=== PATIENT | male | born 1970 | race Caucasian/White ===

== ENCOUNTER 2017-06-02 09:50 | Inpatient (IN) | payer BC, OTHER ==
[2017-06-02] MEDS ORDERED: LIDOCAINE 1% 2 ML INJ ID PRN (13:20)
[2017-06-02] MEDS ORDERED: LR 1,000 ML IV ONE (13:20)
[2017-06-02] MEDS ORDERED: MIDAZOLAM 2 MG/2 ML VIAL IVP ONE (14:13)
--- NOTE | 2017-06-02 14:13 | PDANEPAE ---
ANE History of Present Illness L shoulder hemiarthroplasty ANE Past Medical History - Cardiovascular History Hx Hypertension: No Hx Arrhythmias: No Hx Chest Pain: No Hx Coronary Artery / Peripheral Vascular Disease: No Hx CHF / Valvular Disease: No Hx Palpitations: No - Pulmonary History Hx COPD: No Hx Asthma/Reactive Airway Disease: No Hx Recent Upper Respiratory Infection: No Hx Oxygen in Use at Home: No Hx Sleep Apnea: No Sleep Apnea Screening Result - Last Documented: Negative - Neurologic History Hx Cerebrovascular Accident: No Hx Seizures: No Hx Dementia: No - Endocrine History Hx Diabetes: No - Renal History Hx Renal Disorders: No - Liver History Hx Hepatic Disorders: No - Neurological & Psychiatric Hx Hx Neurological and Psychiatric Disorders: No - Cancer History Hx Cancer: No - Congenital Disorder History Hx Congenital Disorders: No - GI History Hx Gastrointestinal Disorders: No - Other Health History Other Health History: none - Chronic Pain History Chronic Pain: No - Surgical History Prior Surgeries: left shoulder sx x2 elbow x2 ANE Review of Systems Review of systems is: negative Review of Systems: - Exercise capacity Exercise capacity: >=4 METS METS (RN): 5 METS ANE Patient History - Allergies Allergies/Adverse Reactions: No Known Allergies Allergy (Verified 06/02/17 14:05) - Home Medications Home medications: home medication list seen and reviewed Home Medications: Herbals/Supplements -Info Only 1 ea PO DAILY 05/20/17 [Last Taken Unknown] Multivitamins [Multivitamin (*)] 1 each PO DAILY 05/20/17 [Last Taken Unknown] - NPO status NPO Since - Liquids (Date): 06/02/17 NPO Since - Liquids (Time): 08:00 NPO Since - Solids (Date): 06/01/17 NPO Since - Solids (Time): 19:00 - Anes Hx Anes Hx: no prior problems - Smoking Hx Smoking Status: Former smoker - Family Anes Hx Family Anes Hx: none Family Hx Anesthesia Complications: none ANE Labs/Vital Signs - Vital Signs Blood Pressure: 130/84 Heart Rate: 60 Respiratory Rate: 16 O2 Sat (%): 94 Height: 182.88 cm Weight: 83.915 kg ANE Physical Exam - Airway Neck exam: FROM Mallampati Score: Class 1 Mouth exam: normal dental/mouth exam - Pulmonary Pulmonary: no respiratory distress - Cardiovascular Cardiovascular: regular rate and rhythym - ASA Status ASA Status: I
[2017-06-02] MEDS ORDERED: TRANEXAMIC ACID 3,000 MG in NS 50 ML IRR ONE (14:20)
[2017-06-02] MEDS ORDERED: ceFAZolin 2 GM/DEXTROSE 100 ML IV ONE (14:20)
[2017-06-02] MEDS ORDERED: ACETAMINOPHEN 500 MG TAB PO ONE (14:20)
[2017-06-02] MEDS ORDERED: ROPIVACAINE 0.2% 80 MG, EPINEPHrine 0.2 MG, KETOROLAC TROMETHAMINE 30 MG, morphINE 10 M... IU ONE (14:20)
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
--- NOTE | 2017-06-02 14:23 | PDHPUP ---
History & Physical Update H&P update statement: This history and physical update is based on an assessment of the patient which was completed after admission or registration (within 24 hours), but prior to the surgery/procedure. H&P update: H&P reviewed & patient examined, no change in patient's condition since H&P completed
[2017-06-02] MEDS ORDERED: ROPIVACAINE HCL 150 MG/30 ML INJ ONE (14:38)
[2017-06-02] MEDS ORDERED: fentaNYL 100 MCG/2 ML INJ ONE ×3 (14:44→18:46)
[2017-06-02] MEDS ORDERED: LIDOCAINE 2% 100 MG/5 ML SYR ONE (15:10)
[2017-06-02] MEDS ORDERED: DEXAMETHASONE 4 MG/ML VIAL ONE (15:10)
[2017-06-02] MEDS ORDERED: PROPOFOL 200 MG/20 ML VIAL ONE (15:10)
[2017-06-02] MEDS ORDERED: ONDANSETRON 4 MG/2 ML VIAL ONE (15:10)
[2017-06-02] MEDS ORDERED: BUPIVACAINE 0.5% 30 ML SDV ONE (15:31)
[2017-06-02] MEDS ORDERED: BACITRACIN 50,000 UNITS/10 ML SYR IRR ONE (15:31)
[2017-06-02] MEDS ORDERED: POLYMYXIN B SULFATE 500,000 UNIT/10 ML SYR IRR ONE (15:31)
[2017-06-02] MEDS ORDERED: THROMBIN (BOVINE) 5,000 UNIT VIAL TP ONE (15:52)
[2017-06-02] MEDS ORDERED: CALCIUM CHLORIDE 1 GM/10 ML INJ ONE (15:52)
[2017-06-02] MEDS ORDERED: TRANEXAMIC ACID 3,000 MG/50 ML BAG IRR ONE (16:42)
[2017-06-02] MEDS ORDERED: TEMAZEPAM 15 MG CAP PO PRN (19:26)
[2017-06-02] MEDS ORDERED: OXYCODONE/APAP 5/325 TAB PO PRN ×2 (19:26→19:27)
[2017-06-02] MEDS ORDERED: HYDROCODONE/APAP 5/325 TAB PO PRN ×2 (19:26→19:27)
[2017-06-02] MEDS ORDERED: PROMETHAZINE HCL 25 MG/ML INJ IVP PRN (19:26)
[2017-06-02] MEDS ORDERED: ONDANSETRON 4 MG/2 ML VIAL IVP PRN ×2 (19:26→19:27)
[2017-06-02] MEDS ORDERED: HYDROmorphONE/DILAUDID 1 MG/ML INJ IVP PRN ×2 (19:26→19:27)
--- NOTE | 2017-06-02 19:26 | POSTOPPROG ---
Post Op Note Date of Operation: 06/02/17 Surgeon: Bharti Allred Display Designer Outside: [employer] Anesthesia: LMA, Other (Specify) Pre-op Diagnosis: l shoulder oa Procedure: l shoulder franklin-arthroplasty with soft tisse interposition graft Inf/Abcess present in the surg proc area at time of surgery?: No Depth: Deep Incisional (Fascial) EBL: 100-500
[2017-06-02] MEDS ORDERED: NALOXONE HCL 0.4 MG/ML INJ IVP PRN (19:27)
[2017-06-02] MEDS ORDERED: MEPERIDINE 25 MG/ML SYR IVP PRN (19:27)
[2017-06-02] MEDS ORDERED: ALBUTEROL 3 ML DEYVIAL IH PRN (19:27)
--- NOTE | 2017-06-02 19:28 | POSTANESTH ---
Post Anesthetic Evaluation Cardiovascular Status: Normal, Stable Respiratory Status: Normal, Stable Level of Consciousness/Mental Status: Can Participate in Eval Pain Control: Adequate, Prn Tx Ordered Nausea/Vomiting Control: Adequate, Prn Tx Ordered Complications Possibly Related to Anesthesia: None Noted
[2017-06-02] MEDS: ceFAZolin 2 GM/DEXTROSE 100 ML IV SCH (22:01)
[2017-06-02] MEDS: ACETAMINOPHEN 325 MG TAB PO SCH (23:51)
[2017-06-02] MEDS: KETOROLAC 15 MG/1 ML SDV IVP SCH (23:51)
[2017-06-02] MEDS: traMADol 50 MG TAB PO SCH (23:51)
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
[2017-06-03] MEDS: KETOROLAC 15 MG/1 ML SDV IVP SCH ×2 (06:07→12:20)
[2017-06-03] MEDS: ceFAZolin 2 GM/DEXTROSE 100 ML IV SCH (06:07)
[2017-06-03] MEDS: ACETAMINOPHEN 325 MG TAB PO SCH ×2 (06:08→12:20)
[2017-06-03] MEDS: traMADol 50 MG TAB PO SCH ×2 (06:08→12:20)
[2017-06-03 07:25] VITALS: PULSE 72
[2017-06-03 12:16] VITALS: BP 130/79; RESP 16; TEMP 97.8; O2SAT 97
--- NOTE | 2017-06-03 12:28 | SOAPPROG ---
SOAP Progress Note Assessment/Plan: Assessment: Plan: d/c home, no PT 06/03/17 12:27 Subjective: ready to d/c Objective: Vital Signs Temp Pulse Resp BP Pulse Ox 36.6 C 72 16 130/79 H 97 06/03/17 12:14 06/03/17 12:14 06/03/17 12:14 06/03/17 12:14 06/03/17 12:14 06/02/17 06/03/17 06/04/17 05:59 05:59 05:59 Intake Total 4130 400 Output Total 725 Balance 3405 400 dressing cdi, compartkents soft, nvi - Time Spent With Patient Time Spent With Patient: 15 - Pending Discharge Pending Discharge Within 24 Hours: Yes Pending Discharge Within 48 Hours: No Pending Discharge Date: 06/04/17 Pending Discharge Time: 11:00 ICD10 Worksheet Patient Problems: Problems Problem Status Onset Arthritis of left shoulder region Acute - ICD10 Problem Qualifiers (1) Arthritis of left shoulder region
--- NOTE | 2017-06-03 15:01 | ASDISCHSUM ---
Discharge Information Plan Status:Home with No Needs Medically Cleared to Leave: Discharge Date:06/03/2017 01:08 PM CM D/C Disposition:Home, Routine, Self-Care ADT D/C Disposition:Home, Routine, Self-Care Projected Discharge Date:06/03/2017 01:08 PM Transportation at D/C: Discharge Delay Reason: Follow-Up Date:06/03/2017 01:08 PM Discharge Slot: Final Diagnosis: Placement Information Patient Contact Information Contact Name:TEJINDER Relationship: Address:[address] City:[place] Alternate Phone: [facility]/Zip Code:[place] [address] Email: Financial Information Financial Class:HMO and PPO Plans Primary Plan Desc: OUT OF STATE PPO Primary Plan Number:[id number] Secondary Plan Desc: Secondary Plan Number: Assessment Information Intervention Information
== END 2017-06-03 13:08 | disposition home or self-care (01) | DRG 483 ==
LOC: F3N 12:51
PROVIDERS: ADMIT Orthopaedic Surgery; ATTEND Orthopaedic Surgery
PROC: 0RRK0JZ Replacement of Left Shoulder Joint with Synthetic Substitute, Open Approach (ICD-10-PCS; principal; 2017-06-02 14:15)
DX: M19.012 Primary osteoarthritis, left shoulder (principal); M24.012 Loose body in left shoulder
CPT/HCPCS: J0171; J0690; J1100; J1885; J2001; J2250; J2405; J2704; J2795; J3010